=== PATIENT | female | born 2000 | race Caucasian/White ===

== ENCOUNTER 2020-12-09 21:21 | Emergency (ER) | payer OTHER ==
[2020-12-09] MEDS ORDERED: NEOSPORIN OINT30 GM EXT (22:51)
[2020-12-09] MEDS ORDERED: IBUPROFEN600 MG PO (22:51)
== END 2020-12-09 23:10 | disposition home or self-care (01) ==
LOC: ER1 21:21
DX: S60.221A Contusion of right hand, initial encounter (principal); S50.311A Abrasion of right elbow, initial encounter; S80.211A Abrasion, right knee, initial encounter; Z23 Encounter for immunization; V86.59XA Driver of other special all-terrain or other off-road motor vehicle injured in nontraffic accident, initial encounter; Y92.410 Unspecified street and highway as the place of occurrence of the external cause
CPT/HCPCS: 73080; 73130; 73562; 90471; 90715; 99283

== ENCOUNTER 2021-05-09 09:41 | Emergency (ER) | payer OTHER ==
[~2021-05-09] VITALS: Ht 157.5 cm; Wt 138.3 kg
[~2021-05-09 09:41] MED LIST: IBUPROFEN600 MG PO; NEOSPORIN OINT30 GM EXT
[2021-05-09] MEDS ORDERED: DELSYM30 MG/5 ML PO (12:52)
== END 2021-05-09 13:05 | disposition home or self-care (01) ==
LOC: ER1 09:41
DX: U07.1 COVID-19 (principal); J45.909 Unspecified asthma, uncomplicated; Z23 Encounter for immunization; Z91.040 Latex allergy status
CPT/HCPCS: 99283; M0243

== ENCOUNTER 2022-01-23 07:40 | Emergency (ER) | payer OTHER ==
[~2022-01-23 07:40] MED LIST changes: +DELSYM30 MG/5 ML PO
[2022-01-23 08:59] LABS: HEMOGLOBIN 11.9 gm/dl (12.3-15.3); RED BLOOD COUNT 4.79 M/UL (4.00-5.10); WHITE BLOOD COUNT 10.1 K/UL (4.5-11.0)
[2022-01-23 09:32] LABS: BUN/CREATININE RATIO 17 (0-10)
== END 2022-01-23 12:45 | disposition home or self-care (01) ==
LOC: ER1 07:40
PROVIDERS: Nurse Practitioner
DX: R10.31 Right lower quadrant pain (principal); R10.813 Right lower quadrant abdominal tenderness; J45.909 Unspecified asthma, uncomplicated
CPT/HCPCS: 76830; 80053; 81001; 82150; 83690; 84703; 85025; 87086; 96374; 99284; J1885; Q9967